=== PATIENT | female | born 1950 | race Caucasian/White ===

== ENCOUNTER → 2016-12-09 | Outpatient (CLI) | payer MEDICARE, OTHER ==
[2016-12-09 14:27] LABS: AUTOMATED NEUTROPHIL # 2.7 TH/MM3 (1.8-7.7); BASOPHIL % 0.6 % (0.0-2.0); EOSINOPHIL % 0.9 % (0.0-4.0); HEMATOCRIT 41.4 % (35.0-46.0); HEMO FLAGS DIFF FINAL; LYMPH % 29.7 % (9.0-44.0); LYMPHOCYTE # 1.3 TH/MM3 (1.0-4.8); MEAN CELL VOLUME 86.8 FL (80.0-100.0); MEAN CORPUSCULAR HEMOGLOBIN 28.9 PG (27.0-34.0); MEAN CORPUSCULAR HGB CONC 33.3 % (32.0-36.0); MONO % 9.7 % (0.0-8.0); NEUT % 59.1 % (16.0-70.0); PLATELET COUNT 219 TH/MM3 (150-450); RED BLOOD COUNT 4.77 MIL/MM3 (4.00-5.30); WHITE BLOOD COUNT 4.5 TH/MM3 (4.0-11.0)
[2016-12-09 14:32] LABS: BLOOD, URINE NEG (NEG); GLUCOSE,URINE NEG (NEG); HYALINE CAST, URINE 3 /lpf (RARE); KETONE, URINE NEG (NEG); MUCUS URINE MOD /lpf (OCC); NITRITE,URINE NEG (NEG); PH, URINE 5.5 (5.0-8.5); SQUAMOUS EPITHELIAL CELL URINE 2 /hpf (0-5); URINE COLOR YELLOW (YELLW/STRAW)
[2016-12-09 14:39] LABS: INTERNATIONAL NORMALIZED RATIO 2.8 RATIO; PROTHROMBIN TIME - PATIENT 32.5 SEC (9.8-11.6)
[2016-12-09 14:51] LABS: ALT (GPT) 28 U/L (10-53); ANION GAP 4 MEQ/L (5-15); AST (GOT) 18 U/L (15-37); BICARBONATE 30.4 MEQ/L (21.0-32.0); BLOOD UREA NITROGEN 16 MG/DL (7-18); CHLORIDE 109 MEQ/L (98-107); GLOMERULAR FILTRATION RATE 78 ML/MIN (>89); GLUCOSE,FASTING 89 MG/DL (74-99); POTASSIUM 4.1 MEQ/L (3.5-5.1); SODIUM (NA) 143 MEQ/L (136-145)
[2016-12-09 14:59] LABS: ALKALINE PHOSPHATASE 122 U/L (45-117); FREE T4 1.02 NG/DL (0.76-1.46); HDL CHOLESTEROL 67.4 MG/DL (40.0-60.0); LDL CHOLESTEROL 75 MG/DL (0-99); TOTAL BILIRUBIN ADULT 0.2 MG/DL (0.2-1.0)
[2016-12-09 17:46] LABS: HEMOGLOBIN A1a 1.1 %; HEMOGLOBIN A1b 1.7 %; HEMOGLOBIN Ao 85.1 %; HEMOGLOBIN P3 3.9 %
== END ==
LOC: EDBD 13:44 → CLAB 13:44
DX: I82.511 Chronic embolism and thrombosis of right femoral vein (principal); E03.9 Hypothyroidism, unspecified; E78.00 Pure hypercholesterolemia, unspecified; R51 Headache; M89.9 Disorder of bone, unspecified; R73.01 Impaired fasting glucose
CPT/HCPCS: 36415; 80053; 80061; 81001; 82652; 83036; 84439; 84443; 85025; 85610

== ENCOUNTER 2017-01-09 12:39 | Emergency (ER) | payer MEDICARE, OTHER ==
[~2017-01-09] VITALS: Ht 162.6 cm; Wt 87.0 kg
[2017-01-09 12:41] VITALS: BP 141/69; PULSE 74; RESP 20; TEMP 98.5; O2SAT 96
--- NOTE | 2017-01-09 13:19 | PD ---
HPI Chief Complaint: Musculoskeletal Complaint Time Seen by Provider: 13:13 Travel History International Travel<30 days: No Contact w/Intl Traveler<30days: No Traveled to known affect area: No History of Present Illness HPI 66-year-old female presents to emergency department for evaluation of right lateral foot pain status post forced inversion after rolling her ankle while wearing flip flops on January 07. Patient has pain over the right fifth metatarsal. She reports difficulty with weightbearing due to the pain in the foot. 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 Patient reports she is on warfarin. Patient denies any increase in swelling in the extremity. He denies calf pain. Her pain is localized to the right fifth metatarsal. PFSH Past Medical History Hx Anticoagulant Therapy: Yes ([facility]OUMAD[facility]) Social History Alcohol Use: Yes Tobacco Use: No Substance Use: No Allergies-Medications (Allergen,Severity, Reaction): Coded Allergies: Dilantin (Verified Allergy, Intermediate, RASH, 01/09/17) Penicillin (Verified Allergy, Intermediate, RASH, 01/09/17) Review of Systems Except as stated in HPI: all other systems reviewed are Neg General / Constitutional: No: Fever HENT: No: Headaches Cardiovascular: No: Chest Pain or Discomfort Respiratory: No: Shortness of Breath Gastrointestinal: No: Abdominal Pain Genitourinary: No: Dysuria Musculoskeletal: Positive: Pain (right foot pain) Physical Exam Narrative GENERAL: Well-nourished, well-developed patient. SKIN: Focused skin assessment warm/dry. HEAD: Normocephalic. EYES: No scleral icterus. No injection or drainage. NECK: Supple, trachea midline. No JVD or lymphadenopathy. CARDIOVASCULAR: Regular rate and rhythm without murmurs, gallops, or rubs. RESPIRATORY: Breath sounds equal bilaterally. No accessory muscle use. GASTROINTESTINAL: Abdomen soft, non-tender, nondistended. MUSCULOSKELETAL: No cyanosis. Notable swelling to the right ankle and foot. Negative Homans sign. Point tenderness over the right fifth metatarsal. BACK: Nontender without obvious deformity. No CVA tenderness. Data Data Last Documented VS Vital Signs Date Time Temp Pulse Resp B/P Pulse Ox O2 Delivery O2 Flow Rate FiO2 01/09/17 12:41 98.5 74 20 141/69 96 Room Air Orders Foot, Complete ([id number]) (01/09/17 ) [facility] Medical Decision Making Medical Screen Exam Complete: Yes Emergency Medical Condition: Yes Differential Diagnosis Fifth metatarsal fracture, versus midfoot sprain Narrative Course 66-year-old female presents emergency department for evaluation of lateral foot pain status post twisting injury 2 days ago. X-ray shows nondisplaced fracture of the right fifth metatarsal. Patient will be splinted and posterior short- leg. Crutches. Ice and elevate the extremity. Follow-up with orthopedic. Diagnosis Primary Impression: Fracture of fifth metatarsal bone Qualified Code: S92.354A - Closed nondisplaced fracture of fifth metatarsal bone of right foot, initial encounter Referrals: Orthopedist Additional Instructions: Keep the splint in place until follow-up with orthopedic. Ice and elevate the shoulder. Take pain medication as prescribed. Scripts Hydrocodone-Acetaminophen ([place])5-325 mg Tab1 Tab PO Q6H PRN (PAIN) #12 TAB Ref 0 Prov:Daphne Alvarez 01/09/17 Disposition: 01 DISCHARGE HOME Condition: Stable Daphne Alvarez Jan 09, 2017 13:19
--- NOTE | 2017-01-09 14:00 | RADRPT ---
EXAM DATE/TIME: 01/09/2017 13:40 [facility] COMPARISON: No previous studies available for comparison. INDICATIONS : Right lateral foot pain. Fall 2 days ago. Permanent swelling from blood clot in 2008. MEDICAL HISTORY : Right lower leg blood clot 2008, unrepaired. SURGICAL HISTORY : None. ENCOUNTER: Initial ACUITY: 2 days PAIN SCORE: 6/10 LOCATION: Right lateral foot FINDINGS: Three view examination of the right foot demonstrates a small nodular cortical fracture near the base of the fifth metatarsal. The fracture line does not appear to extend all the way through to the oppo site cortex. There is degenerative changes at the first metatarsophalangeal joint. No evidence of abelardo nt dislocation. There is a small heel spur. There are mild degenerative changes of the metatarsal bon es.. CONCLUSION: Nondisplaced cortical fracture near the base of the fifth metatarsal. Winston Pisano MD on January 09, 2017 at 13:56 Board Certified Radiologist. This report was verified electronically.
[2017-01-09] MEDS ORDERED: NORC5TAB PO (14:40)
[2017-01-09 15:16] VITALS: BP 132/73
== END 2017-01-09 15:18 | disposition home or self-care (01) ==
LOC: NEPD 12:39
DX: S92.354A Nondisplaced fracture of fifth metatarsal bone, right foot, initial encounter for closed fracture (principal); X50.0XXA Overexertion from strenuous movement or load, initial encounter
CPT/HCPCS: 29515; 73630

== ENCOUNTER → 2017-01-13 | Outpatient (CLI) | payer MEDICARE, OTHER ==
[~2017-01-13] MED LIST: NORC5TAB PO
== END ==
LOC: HORT 15:07
PROVIDERS: ATTEND Family Medicine
DX: S92.353A Displaced fracture of fifth metatarsal bone, unspecified foot, initial encounter for closed fracture (principal); X58.XXXA Exposure to other specified factors, initial encounter
CPT/HCPCS: E0113; G0463; 99202

== ENCOUNTER → 2017-01-17 | Outpatient (CLI) | payer MEDICARE, OTHER | LOC: HORT 14:28 | PROVIDERS: ATTEND Family Medicine | DX: Z47.89 Encounter for other orthopedic aftercare (principal) ==

== ENCOUNTER → 2017-05-23 | Outpatient (CLI) | payer MEDICARE, OTHER ==
[2017-05-23 11:16] LABS: AUTOMATED NEUTROPHIL # 2.5 TH/MM3 (1.8-7.7); BASOPHIL % 0.6 % (0.0-2.0); EOSINOPHIL # 0.1 TH/MM3 (0-0.4); EOSINOPHIL % 2.1 % (0.0-4.0); HEMATOCRIT 42.8 % (35.0-46.0); HEMO FLAGS DIFF FINAL; LYMPH % 31.3 % (9.0-44.0); LYMPHOCYTE # 1.4 TH/MM3 (1.0-4.8); MEAN CELL VOLUME 88.7 FL (80.0-100.0); MEAN CORPUSCULAR HEMOGLOBIN 29.6 PG (27.0-34.0); MEAN CORPUSCULAR HGB CONC 33.3 % (32.0-36.0); MONO % 9.9 % (0.0-8.0); NEUT % 56.1 % (16.0-70.0); PLATELET COUNT 219 TH/MM3 (150-450); RED BLOOD COUNT 4.82 MIL/MM3 (4.00-5.30); RED CELL DISTRIBUTION WIDTH 13.5 % (11.6-17.2); WHITE BLOOD COUNT 4.5 TH/MM3 (4.0-11.0)
[2017-05-23 11:40] LABS: ALT (GPT) 31 U/L (10-53); ANION GAP 5 MEQ/L (5-15); AST (GOT) 16 U/L (15-37); BICARBONATE 30.7 MEQ/L (21.0-32.0); BLOOD UREA NITROGEN 12 MG/DL (7-18); CHLORIDE 107 MEQ/L (98-107); GLOMERULAR FILTRATION RATE 82 ML/MIN (>89); GLUCOSE,FASTING 102 MG/DL (74-99); POTASSIUM 3.9 MEQ/L (3.5-5.1); SODIUM (NA) 143 MEQ/L (136-145)
[2017-05-23 11:50] LABS: ALKALINE PHOSPHATASE 134 U/L (45-117); FREE T4 1.27 NG/DL (0.76-1.46); HDL CHOLESTEROL 72.1 MG/DL (40.0-60.0); LDL CHOLESTEROL 78 MG/DL (0-99); TOTAL BILIRUBIN ADULT 0.2 MG/DL (0.2-1.0)
== END ==
LOC: CLAB 10:36
PROVIDERS: ATTEND Family Medicine
DX: R19.7 Diarrhea, unspecified (principal); M25.552 Pain in left hip; R51 Headache; I82.409 Acute embolism and thrombosis of unspecified deep veins of unspecified lower extremity; E78.2 Mixed hyperlipidemia; R32 Unspecified urinary incontinence; R53.83 Other fatigue; M85.80 Other specified disorders of bone density and structure, unspecified site
CPT/HCPCS: 36415; 80053; 80061; 84439; 84443; 85025; 87086

== ENCOUNTER → 2017-06-02 | Outpatient (CLI) | payer MEDICARE, OTHER ==
[2017-06-02 16:33] LABS: C. DIFF EPI 027 PRESUMPTIVE NEGATIVE (NEGATIVE)
== END ==
LOC: CLAB 14:27
PROVIDERS: ATTEND Family Medicine
DX: R19.7 Diarrhea, unspecified (principal); I82.409 Acute embolism and thrombosis of unspecified deep veins of unspecified lower extremity; R32 Unspecified urinary incontinence; R51 Headache; E78.2 Mixed hyperlipidemia; R53.83 Other fatigue
CPT/HCPCS: 87328; 87329; 87493; 87506